=== PATIENT | female | born 1950 | race Caucasian/White ===

== ENCOUNTER → 2017-12-03 | Outpatient (CLI) | payer OTHER, BC ==
--- NOTE | 2017-12-03 16:15 | CPEEG ---
[f rep st] ELECTROENCEPHALOGRAM DATE OF STUDY: 12/03/2017 INTERPRETATION: Normal EEG during wakefulness and sleep. There were no potentially epileptogenic ab normalities present during the recording. REPORT: This EEG contains 9 Hz alpha activity in the posterior head regions. There was prominent be ta frequency activity in the background. This may be physiologic or sometimes related to medication effect. There was no abnormal activation at rest, during photic stimulation or hyperventilation. Th e patient became drowsy and fell asleep during the study. There was no abnormal activation with drow siness, sleep, or during times of arousal. /[id number]/MODL
== END ==
LOC: FCPNEURO 13:52
PROVIDERS: ATTEND Psychiatry & Neurology Neurology
DX: R20.2 Paresthesia of skin (principal)

== ENCOUNTER 2017-12-05 18:43 | Observation (INO) | payer OTHER, BC ==
--- NOTE | 2017-12-05 19:04 | EDPHY ---
HPI/HX/ROS/PE/MDM Narrative: CHIEF COMPLAINT: Aphasia, gait disturbance HISTORY OF PRESENT ILLNESS: This patient is a 67 y/o female arriving with her brother complaining of aphasia and gait disturbance onset this afternoon. This afternoon around 14:00, she went on a three mile hike, which is normal for her. She felt well at that time and her brother at bedside states she had no neurologic deficits at that time. After returning, she took a shower and when she came downstairs at 17:30, she was unable to speak to her brother including answering any questions. On arrival in the emergency department, she complaints of left-sided head pain and per nurse's report was listing to towards the right while walking to her room. The patient denies any falls while hiking or other recent head trauma. She denies numbness, paresthesias, or weakness. Throughout my interview, the patient has difficulty answering questions properly and following commands. No definitive history of fevers or chills. Patient denies shortness of breath or chest pain. Brother has little information regarding her past medical history. HPI obtained partially from patient's brother at bedside. He notes the patient did have an imaging study of her brain done yesterday at [facility] for an unknown reason. REVIEW OF SYSTEMS: Unable to obtain due to patient's expressive aphasia. PAST MEDICAL HISTORY: Unable to obtain. SOCIAL HISTORY: Brother at bedside. Lives in [place]. . VITAL SIGNS: Reviewed by me GENERAL: Well-developed, well-nourished, resting comfortably in no respiratory distress. HEENT: Atraumatic. Eyes: No icterus, no injection. EOMI. Mouth: moist mucous membranes. No erythema or lesions. Neck: supple with no adenopathy. LUNGS: Clear to auscultation bilaterally, no wheezes, rhonchi or rales. CARDIAC: Regular rate and rhythm, no rubs, murmurs or gallops. ABDOMEN: Soft, nontender, nondistended, bowel sounds normal. BACK: No CVA tenderness. EXTREMITIES: No trauma. No edema. Range of motion is normal throughout. NEURO: Expressive and receptive aphasia. Difficulty following simple commands. Difficult to assess motor strength secondary to patient's inability to fully cooperate with the exam. Patient has unusual episodes of teeth clacking which brother says occurs when she is anxious or stressed. SKIN: Warm and dry, no rash. PSYCHIATRIC: Seems slightly anxious. Unable to fully assess. Portions of this note were transcribed by a clinical specialist medical device. I personally performed a history, physical exam, medical decision making, and confirmed accuracy of information the transcribed note. ED Course: 18:45 Met patient on arrival. 67 y/o female presents with expressive and receptive aphasia. Ordered stat head CT. Plan to consult with [facility]. 19:[address] Thomas, radiologist. CT head negative for acute processes. Plan for CTA head and neck for further evaluation. 19:15 Dr. Davidson, neurologist consulted patient by telemedicine. Contact: 19:20 Reassessed. The patient believes difficulty with her words started around 17:30 and her brother now remembers that he saw her normal around 17:00 when she was returning to the house after her hike. During her interview with Dr. Davidson, the patient's presentation was markedly improved compared to her arrival here in the emergency department with more fluid speech, as well as ability to follow simple commands. Dr. Avendano does not recommend tPA, due to some concerns regarding the last known normal time as well as patient's improvement. 20:19 CTA head and neck negative for acute processes. Reassessed. Patient continues to improve. 21:07 Consulted with hospitalist service. Dr. Lovelace accepts admission for stroke-like symptoms, confusion, word-finding difficulty. MDM: Differential diagnoses the patient's presenting complaints was considered including but not limited to intracranial injury, TIA, ischemic cerebrovascular accident, hemorrhagic cerebrovascular accident, hypoglycemia, complex migraine , metastases, tumor, seizure, or electrolyte abnormality - Data Points Imaging Results: Imaging Impressions Head CT 12/05/17 18:47 Impression: Normal noncontrast CT of the brain. Results called to Dr. Sherrie Bruce at 7:00 PM at the time of the interpretation. Chest X-Ray 12/05/17 18:55 Impression: Negative portable chest. Head CTA 12/05/17 19:34 Impression: Negative CT angiography of the [place] of [place]. Results called to Dr. Bruce at 8:20 PM.. Neck CTA 12/05/17 19:34 Impression: Negative CT angiography of the carotid and vertebrobasilar system. Results called to Dr. Bruce at 8:20 PM. Note: All stenoses are calculated using NASCET Criteria. Imaging: Discussed imaging studies w/ mail caller Radiologist Laboratory Results: Laboratory Results 12/05/17 18:54 12/05/17 18:54 12/05/17 12/05/17 12/05/17 18:59 18:54 18:54 WBC RBC Hgb POC Hgb 14.6 gm/dL gm/dL (12.6-16.3) Hct POC Hct 43 % % (38-47) MCV MCH MCHC RDW Plt Count MPV Neut % (Auto) Lymph % (Auto) [place] % (Auto) Eos % (Auto) Baso % (Auto) Nucleat RBC Rel Count Absolute Neuts (auto) Absolute Lymphs (auto) Absolute Monos (auto) Absolute Eos (auto) Absolute Basos (auto) Absolute Nucleated RBC Immature Gran % Immature Gran # PT 12.4 SEC SEC (12.0-15.0) INR 0.90 (0.83-1.16) POC Sodium 142 mEq/L mEq/L (135-145) Sodium 142 mEq/L mEq/L (135-145) POC Potassium 3.5 mEq/L mEq/L (3.3-5.0) Potassium 3.8 mEq/L mEq/L (3.5-5.2) POC Chloride 103 mEq/L mEq/L (97-110) Chloride 102 mEq/L mEq/L (97-110) Carbon Dioxide 29 mEq/l mEq/l (22-31) Anion Gap 11 mEq/L mEq/L (8-16) POC BUN 24 mg/dL H mg/dL (7-23) BUN 22 mg/dL mg/dL (7-23) Creatinine 0.9 mg/dL mg/dL (0.6-1.0) POC Creatinine 0.8 mg/dL mg/dL (0.6-1.0) Estimated GFR > 60 Glucose 106 mg/dL H mg/dL (70-100) POC Glucose 114 mg/dL H mg/dL (70-100) Calcium 9.5 mg/dL mg/dL (8.5-10.4) 12/05/17 18:54 WBC 6.92 10^3/uL 10^3/uL (3.80-9.50) RBC 4.59 10^6/uL 10^6/uL (4.18-5.33) Hgb 14.3 g/dL g/dL (12.6-16.3) POC Hgb Hct 42.3 % % (38.0-47.0) POC Hct MCV 92.2 fL fL (81.5-99.8) MCH 31.2 pg pg (27.9-34.1) MCHC 33.8 g/dL g/dL (32.4-36.7) RDW 11.9 % % (11.5-15.2) Plt Count 257 10^3/uL 10^3/uL (150-400) MPV 9.6 fL fL (8.7-11.7) Neut % (Auto) 58.5 % % (39.3-74.2) Lymph % (Auto) 30.9 % % (15.0-45.0) [place] % (Auto) 9.4 % % (4.5-13.0) Eos % (Auto) 0.6 % % (0.6-7.6) Baso % (Auto) 0.3 % % (0.3-1.7) Nucleat RBC Rel Count 0.0 % % (0.0-0.2) Absolute Neuts (auto) 4.05 10^3/uL 10^3/uL (1.70-6.50) Absolute Lymphs (auto) 2.14 10^3/uL 10^3/uL (1.00-3.00) Absolute Monos (auto) 0.65 10^3/uL 10^3/uL (0.30-0.80) Absolute Eos (auto) 0.04 10^3/uL 10^3/uL (0.03-0.40) Absolute Basos (auto) 0.02 10^3/uL 10^3/uL (0.02-0.10) Absolute Nucleated RBC 0.00 10^3/uL 10^3/uL (0-0.01) Immature Gran % 0.3 % % (0.0-1.1) Immature Gran # 0.02 10^3/uL 10^3/uL (0.00-0.10) PT INR POC Sodium Sodium POC Potassium Potassium POC Chloride Chloride Carbon Dioxide Anion Gap POC BUN BUN Creatinine POC Creatinine Estimated GFR Glucose POC Glucose Calcium Point of Care Test Results: 12/05/17 18:59 POC Sodium 142 POC Potassium 3.5 POC Chloride 103 POC BUN 24 H POC Creatinine 0.8 POC Glucose 114 H General Time Seen by Provider: 12/05/17 18:54 Initial Vital Signs: Initial Vital Signs Temperature (C) 36.6 C 12/05/17 18:50 Heart Rate 91 12/05/17 18:50 Respiratory Rate 18 12/05/17 18:50 Blood Pressure 185/91 H 12/05/17 18:50 O2 Sat (%) 97 12/05/17 18:50 O2 Delivery Mode Room Air Allergies/Adverse Reactions: No Known Allergies Allergy (Unverified 12/05/17 20:15) Home Medications: Medication Instructions Recorded NK [No Known Home Meds] 12/05/17 Departure - Departure Disposition: [facility] Inpatient Acute Clinical Impression: Word finding difficulty, Stroke-like symptoms, Confusion Condition: Fair Report Scribed for: Sherrie Bruce Report Scribed by: Jennie Newell Date of Report: 12/05/17 Time of Report: 21:09
[2017-12-05 19:05] LABS: PLATELET COUNT 257 10^3/uL (150-400)
--- NOTE | 2017-12-05 19:08 | CPEKG ---
Heart Rate: 87 RR Interval: 690 P-R Interval: 164 QRSD Interval: 94 QT Interval: 376 QTC Interval: 453 P [place]: 73 QRS [place]: 25 T Wave [place]: 56 EKG Severity - NORMAL ECG - EKG Impression: SINUS RHYTHM Electronically Signed By: Sherrie Bruce 05-Dec-2017 22:31:56
[2017-12-05 19:15] LABS: INR 0.9 (0.83-1.16); PROTIME(PATIENT) 12.4 SEC (12.0-15.0)
--- NOTE | 2017-12-05 19:20 | PDCONSULT ---
Weaving Machine Operator Note: [facility] Note Demographics Consult Type: Acute Stroke First Name: Alexia Last Name: Yojana Date of : 1950 Age: 67 Gender: Female Time of initial page (): 12/05/2017 19:12 Time of return call (): 12/05/2017 19:12 Time Ready to Initiate Telemed Consult ( Time): 12/05/2017 19:12 HPI Additional History (Free Text): 67yo woman who presents with word finding issues and confusion. She was last normal at 230PM by brother. There is no focal weakness. She is not following commands well. Associated Symptoms: headache Exam Vitals: vital signs reviewed NIHSS Time (): 12/05/2017 19:16 LOC 1a: 0 = Alert; keenly responsive LOC 1b: 0 = Answers both questions correctly LOC Commands: 0 = Performs both tasks correctly Best Gaze: 0 = Normal Visual: 0 = No visual loss Facial Palsy: 1 = Minor paralysis (flattened nasolabial fold, asymmetry on smiling) Motor Arm L: 0 = No drift; limb holds 90 (or 45) degrees for full 10 seconds Motor Arm R: 0 = No drift; limb holds 90 (or 45) degrees for full 10 seconds Motor Leg L: 0 = No drift; leg holds 30-degree position for full 5 seconds Motor Leg R: 0 = No drift; leg holds 30-degree position for full 5 seconds Limb Ataxia: 0 = Absent Sensory: 0 = Normal; no sensory loss Best Language: 1 = Dccw-so-vaknchdt aphasia; some obvious loss of fluency or facility of comprehension Dysarthria: 0 = Normal Extinction + Inattention: 0 = No abnormality NIHSS: [address]: no bleed Assessment Assessment: Acute Ischemic Stroke, resolving symptoms Plan Lytic/Intervention: NOT IV or IA candidate tPA Exclusion: > 4.5 hr Target Blood Pressure: SBP < 220 Labs: Comprehensive metabolic panel, ESR, HgbA1c, Lipid Panel, UDS Imaging: CTA Head and Neck STAT, Please call me back with results GIN if there are signs of occlusion or dissection, MRI brain without Diagnostic test: echocardiogram with bubble Therapy/Eval: NPO until cleared by swallow evaluation, PT/OT, Speech/Swallow therapy consult Medication: aspirin 81mg per day VTE Prophylaxis: SCD Other: LDL goal less than 70, permissive HTN, telemetry monitoring, I have discussed my recommendations with the referring provider Disposition: admit [facility] Telemedicine: Interactive 2 way audio and visual telecommunication technology was utilized during this visit. Provider Location: [place]
[2017-12-05] MEDS ORDERED: IOPAMIDOL (ISOVUE 370) 100 ML BTL IV ONE (19:35)
[2017-12-05] MEDS ORDERED: ACETAMINOPHEN 325 MG TAB PO PRN (22:24)
[2017-12-05] MEDS ORDERED: ONDANSETRON 4 MG/2 ML VIAL IVP PRN (22:24)
[2017-12-05] MEDS ORDERED: ONDANSETRON DISINTEGRATING 4 MG TAB PO PRN (22:24)
[2017-12-06] MEDS ORDERED: SODIUM CL NASAL 45 ML BTL EACHNARE PRN (00:10)
--- NOTE | 2017-12-06 04:56 | PDGENHP ---
History and Physical - Chief Complaint Word finding difficulty - History of Present Illness 67 yo F w/ hx of anxiety presents with word finding difficulty. Patient went on a hike today. After returning she had a spell where she noted word finding difficulty and R hand numbness. This occurred sometime around 17:15. She presented to the ED for evaluation. She displayed significant improvement by the time of her presentation and was not deemed to be a tPA candidate by [facility]. She is being admitted for suspected TIA work-up. History Information - Allergies/Home Medication List Allergies/Adverse Reactions: No Known Allergies Allergy (Unverified 12/05/17 20:15) Home Medications: ALPRAZolam [Xanax 0.25 MG (*)] 0.125 - 0.25 mg PO DAILY PRN 12/05/17 [Last Taken 12/05/17] Ascorbic Acid [Vitamin C 500 mg (*)] 1,000 mg PO DAILY 12/05/17 [Last Taken ] Cholecalciferol Vit D3 [Vitamin D3 (*)] 2,000 units PO DAILY 12/05/17 [Last Taken 12/05/17] Clobetasol 0.05% [Temovate Cream] 1 deborah TP DAILY PRN 12/05/17 [Last Taken Unknown] Diclofenac Sodium 1 deborah TP DAILY PRN 12/05/17 [Last Taken 12/04/17] Fluticasone Nasal [Flonase Nasal [place] (RX)] 1 sprays EACHNARE Q2D 12/05/17 [ Last Taken 12/04/17] Loratadine 10 mg PO DAILY 12/05/17 [Last Taken 12/05/17] Magnesium Oxide 250 mg PO DAILY 12/05/17 [Last Taken 12/05/17] Multivitamins [Multivitamin (*)] 1 each PO DAILY 12/05/17 [Last Taken 12/05/17] Mupirocin 2% 1 deborah PO TID PRN 12/05/17 [Last Taken 1 Week Ago ~11/28/17] Propranolol HCl [Inderal 10mg (*)] 5 - 10 mg PO DAILY PRN 12/05/17 [Last Taken 12/05/17] Sodium Chloride [[place]] 1 spray EACHNARE Q2D 12/05/17 [Last Taken 12/03/17] busPIRone [Buspar (*)] 10 - 20 mg PO QID PRN 12/05/17 [Last Taken 12/05/17 12:00 ] I have personally reviewed and updated: family history, medical history - Past Medical History Additional medical history: Anxiety - Surgical History Reports: hysterectomy Additional surgical history: x2 - Family History Positive for: stroke - Social History Smoking Status: Never smoked Review of Systems Review of Systems: ROS: 10pt was reviewed & negative except for what was stated in HPI & below Physical Exam Physical Exam: Temp Pulse Resp BP Pulse Ox 36.6 C 93 18 163/80 H 90 L 12/06/17 00:26 12/06/17 00:26 12/06/17 00:26 12/06/17 00:26 12/06/17 00:26 Constitutional: no apparent distress, not in pain Eyes: PERRL, EOMI Ears, Nose, Mouth, Throat: moist mucous membranes, no oral mucosal ulcers Cardiovascular: regular rate and rhythym, no murmur, rub, or gallop Respiratory: no respiratory distress, no rales or rhonchi Gastrointestinal: normoactive bowel sounds, soft, non-tender abdomen Skin: warm, normal color Neurologic: AAOx3, CN II-XII Intact, other (NIHSS 0) Psychiatric: interacting appropriately, not anxious Lab Data & Imaging Review 12/05/17 18:54 12/05/17 18:54 WBC 6.92 10^3/uL (3.80-9.50) 12/05/17 18:54 RBC 4.59 10^6/uL (4.18-5.33) 12/05/17 18:54 Hgb 14.3 g/dL (12.6-16.3) 12/05/17 18:54 POC Hgb 14.6 gm/dL (12.6-16.3) 12/05/17 18:59 Hct 42.3 % (38.0-47.0) 12/05/17 18:54 POC Hct 43 % (38-47) 12/05/17 18:59 MCV 92.2 fL (81.5-99.8) 12/05/17 18:54 MCH 31.2 pg (27.9-34.1) 12/05/17 18:54 MCHC 33.8 g/dL (32.4-36.7) 12/05/17 18:54 RDW 11.9 % (11.5-15.2) 12/05/17 18:54 Plt Count 257 10^3/uL (150-400) 12/05/17 18:54 MPV 9.6 fL (8.7-11.7) 12/05/17 18:54 Neut % (Auto) 58.5 % (39.3-74.2) 12/05/17 18:54 Lymph % (Auto) 30.9 % (15.0-45.0) 12/05/17 18:54 [place] % (Auto) 9.4 % (4.5-13.0) 12/05/17 18:54 Eos % (Auto) 0.6 % (0.6-7.6) 12/05/17 18:54 Baso % (Auto) 0.3 % (0.3-1.7) 12/05/17 18:54 Nucleat RBC Rel Count 0.0 % (0.0-0.2) 12/05/17 18:54 Absolute Neuts (auto) 4.05 10^3/uL (1.70-6.50) 12/05/17 18:54 Absolute Lymphs (auto) 2.14 10^3/uL (1.00-3.00) 12/05/17 18:54 Absolute Monos (auto) 0.65 10^3/uL (0.30-0.80) 12/05/17 18:54 Absolute Eos (auto) 0.04 10^3/uL (0.03-0.40) 12/05/17 18:54 Absolute Basos (auto) 0.02 10^3/uL (0.02-0.10) 12/05/17 18:54 Absolute Nucleated RBC 0.00 10^3/uL (0-0.01) 12/05/17 18:54 Immature Gran % 0.3 % (0.0-1.1) 12/05/17 18:54 Immature Gran # 0.02 10^3/uL (0.00-0.10) 12/05/17 18:54 PT 12.4 SEC (12.0-15.0) 12/05/17 18:54 INR 0.90 (0.83-1.16) 12/05/17 18:54 POC Sodium 142 mEq/L (135-145) 12/05/17 18:59 Sodium 142 mEq/L (135-145) 12/05/17 18:54 POC Potassium 3.5 mEq/L (3.3-5.0) 12/05/17 18:59 Potassium 3.8 mEq/L (3.5-5.2) 12/05/17 18:54 POC Chloride 103 mEq/L (97-110) 12/05/17 18:59 Chloride 102 mEq/L (97-110) 12/05/17 18:54 Carbon Dioxide 29 mEq/l (22-31) 12/05/17 18:54 Anion Gap 11 mEq/L (8-16) 12/05/17 18:54 POC BUN 24 mg/dL (7-23) H 12/05/17 18:59 BUN 22 mg/dL (7-23) 12/05/17 18:54 Creatinine 0.9 mg/dL (0.6-1.0) 12/05/17 18:54 POC Creatinine 0.8 mg/dL (0.6-1.0) 12/05/17 18:59 Estimated GFR > 60 12/05/17 18:54 Glucose 106 mg/dL (70-100) H 12/05/17 18:54 POC Glucose 114 mg/dL (70-100) H 12/05/17 18:59 Calcium 9.5 mg/dL (8.5-10.4) 12/05/17 18:54 Imaging Review: Imaging Impressions Head CT 12/05/17 18:47 Impression: Normal noncontrast CT of the brain. Results called to Dr. Sherrie Bruce at 7:00 PM at the time of the interpretation. Chest X-Ray 12/05/17 18:55 Impression: Negative portable chest. Head CTA 12/05/17 19:34 Impression: Negative CT angiography of the [place] of [place]. Results called to Dr. Bruce at 8:20 PM.. Neck CTA 12/05/17 19:34 Impression: Negative CT angiography of the carotid and vertebrobasilar system. Results called to Dr. Bruce at 8:20 PM. Note: All stenoses are calculated using NASCET Criteria. Assessment & Plan Assessment: 67 yo F w/ hx of anxiety presents w/ possible TIA. Plan: 1. TIA - Presented with word-finding difficulty and R hand numbness, which improved by time of arrival. She was not deemed to be a tPA candidate by [facility]. She denies symptoms at the time of my evaluation with a NIHSS of 0. - Admit for observation - Neuro checks q4h, PT/OT/PANTOGRAPH ENGRAVER evals - S/p CTA Head/Neck with no acute lesions - MRI brain w/o, TTE w/ bubble ordered - Monitor on telemetry - Check lipid panel, A1c - Neurology consult placed Diet - Regular pending swallow eval Code - Full Ppx - SCDs Dispo - Admit under observation status
[2017-12-06 05:56] LABS: PLATELET COUNT 242 10^3/uL (150-400)
--- NOTE | 2017-12-06 09:35 | NEUROPROG ---
Assessment: [id number] - Neurology Consult: - CC: Dr. Pete consulted neurology for word finding difficulties. Results placed in EMR for their review. - HPI: Pt presented to [facility] ER on 12/05/17 with word finding difficulty and right hand numbness. Her symptoms improved in the ER so she was not a TPA candidate. Head CT and CTA head/neck was unremarkable. She was admitted for a stroke evaluation. I initially saw her on 12/06/17. She reported her symptoms have now resolved. She has been working outpatient with Dr. Khushbu Rider for tinnitus. - PMHx: anxiety, hysterectomy, C-sect - Home Meds: Xanax, diclofenac, loratadine, propranolol, buspar - SHx: no tobacco FHx: stroke - ROS: Pt denied acute fever, total vision loss, active severe chest pain, respiratory failure, total body severe rash, total bowel/bladder incontinence, psychosis, active seizures, or active bleeding - O: VS reviewed General: Alert Eyes: Fundoscopic exam not able to visualize optic disks CV: Heart RRR, no murmur, no carotid bruit Lungs: Clear to auscultation bilaterally, no rhonchi or rales Neuro: - Mental: . Oriented x person/place/date . concentration appears normal . speech fluency/comprehension normal . memory appears normal . fund of knowledge appear intact - Cranial Nerves: . II: PERRL, VFFTC . III/IV/: EOMI, no nystagmus, normal smooth pursuits, no Ptosis . V: facial sensation intact to LT . VII: face symmetric to eye closure and smile . VIII: hearing intact to conversation . IX/X: uvula raises symmetrically . XI: SCM 5/5 B/L strength . XII: tongue protrudes midline w/nl strength - Motor: . Tone: normal tone in all 4 extremity . Strength: no pronator drift, strength 5/5 throughout (B/L delt, bic, tri, hand director foundation, hf/he, df/pf) - Reflexes: B/L bic/BR/patella 2/4 - Sensory: all 4 extremity intact to light touch - Coord: [id number] wnl, FRANCESCA wnl, [id number] wnl - Gait: Deferred - NIH SS 0 - Labs: 12/05/17- CBC unremarkable 12/06/17- CMP Anion gap 6L, LDL 77L - Rads: 12/05/17- Head CT: normal (I personally visualized the images on 12/06/17) 12/05/17- Head/Neck CTA: unremarkable - Assessment: 1. TIA causing Transient word finding difficulties and right hand numbness on : Normal neurologic exam. Symptoms most consistent with TIA. CTA head/ neck unremarkable on 12/05/17 and LDL 77. - Plan: - Begin Aspirin 325 mg qd, change to Aspirin 81 mg qd on discharge for stroke prevention - Brain MRI w/o con - TTE, 24 hour telemetry - Blood pressure goal < 140/90 - H1AC < 7.0 (H1AC pending) - LDL < 70 (77), recommend beginning low dose statin - Speech consult to determine any rehab needs - F/U in 1-4 weeks with her local neurologist, Dr. Khushbu Rider, who she has established care with Objective: Vital Signs Temp Pulse Resp BP Pulse Ox 36.9 C 80 14 125/78 H 95 12/06/17 08:00 12/06/17 08:00 12/06/17 08:00 12/06/17 08:00 12/06/17 08:00 Laboratory Results 12/06/17 05:22 12/06/17 05:22 12/05/17 12/06/17 12/07/17 05:59 05:59 05:59 Intake Total 150 Output Total 500 Balance -350 PT 12.4 SEC (12.0-15.0) 12/05/17 18:54 INR 0.90 (0.83-1.16) 12/05/17 18:54 Allergies/Adverse Reactions: No Known Allergies Allergy (Unverified 12/05/17 20:15)
--- NOTE | 2017-12-06 09:40 | NEUROPROG ---
Assessment: [id number] - Neurology Consult: - CC: F/U for stroke - Narrative Summary: Pt reported she awoke on 12/03/17 and noted left side numbness of her arm/leg. A brain MRI showed bilateral small strokes suggesting embolic source. Head/ neck CTA showed moderate atherosclerotic disease in the B/L common carotid arteries w/o complete occlusion or intraluminal thrombi. Pt outside window for TPA so admitted for stroke evaluation. Outpatient meds prior to stroke had included aspirin 325 mg qd, Plavix 75 mg qd, and Lipitor 10 mg qd. Pt was using tobacco. LDL 72 and H1AC 7.3 on 12/04/17. I initially saw the patient on 12/04/17. She complained of some left arm numbness but otherwise felt back to her normal baseline. - F/U 12/05/17. I spoke with Tele-neurology doctor on-call on 12/04/17 and discussed case. He felt it was reasonable, given suspected cardio-embolic stroke source, of beginning Eliquis for oral anticoagulation, stopping Plavix, and decreasing aspirin to 81 mg qd. She should also have a long-term implanted cardiac rhythm monitor placed at discharge or soon afterwards. Pt denied new complaints. Telemetry and TTE were unremarkable for cardioembolic source. - HPI: F/U 12/06/17. Implanted fitness and wellness manager placed yesterday. No new events. Pt able to use bathroom without problems. Pt denied any problems. - PMHx: DM2, COPD, HLD, glaucoma, CAD post stenting, lung cancer - SHx: +tobacco FHx: Alz, brain tumor - ROS: Pt denied acute fever, total vision loss, active severe chest pain, respiratory failure, total body severe rash, total bowel/bladder incontinence, psychosis, active seizures, or active bleeding - Labs: 12/03/17- CMP Ca 8.4L, H1AC 7.3H 12/04/17- LDL 72L - Rads: 12/03/17- CTA head/neck: mod b/l carotid disease, 40% b/l prox ICA stenosis, vertebral atherosclerosis, R upper lobe lung ca, intracranial stenosis of vessels 12/03/17- Brain MRI w/o con: multiple acute lacunar infarcts involving R frontal , R occipital, and B/L cerebellar areas, likely embolic, mod atrophy and severe CMVD 12/04/17- TTE: no thrombus reported 12/04/17- 24 hour telemetry: no afib reported - Assessment: 1. Multiple acute lacunar infarcts involving R frontal, R occipital, and B/L cerebellar areas on 12/03/17 causing left sided numbness: Neurologic exam on 12/04 showed left arm sensory changes. Stroke risk factors are tobacco use, diabetes, HLD, CAD, significant vascular atherosclerosis, and lung cancer. Given stroke pattern on MRI it appears to be a proximal embolic source, likely cardiac. Given the stroke occurred on ASA/Plavix and statin in addition to her severe underlying atherosclerotic disease in her intracranial vessels places her at high risk for recurrent stroke. TTE/24 hour telemetry unremarkable for stroke cause. - 2. Significant vascular athersclerotic disease: CTA head/neck on 12/03/17 showed mod b/l carotid disease, 40% b/l prox ICA stenosis, vertebral atherosclerosis, R upper lobe lung ca, intracranial stenosis of vessels placing her at high risk for stroke. Pt will need aggressive reduction of risk factors of which smoking tobacco is the primary factor. - 3. Lung Cancer 4. DM2 5. CAD - Plan: - Pt needs implanted prolonged fitness and wellness manager to look for paroxysmal afib - Stop Plavix - Begin Eliquis for oral anticoagulation given suspected cardioembolic stroke source - Change ASA 325 mg qd to 81 mg qd (less bleeding risk given use of concurrent anti-coagulation, pt needs antiplatelet therapy given significant atherosclerotic vessel disease on CTA head/neck, pt counseled on increased bleeding risk on 12/04/17 and she accepted risk) - Tobacco cessation is critical - Blood pressure goal < 140/90 - H1AC < 7.0 (7.3) - LDL < 70 (7.2), recommend increasing Lipitor 10 mg qd to 20 mg qd to address - PT/OT/Speech to determine rehab needs - F/U in neurology clinic in 1-4 weeks after discharge - No further inpatient neurologic w/u needed, neurology will sign off Objective: Vital Signs Temp Pulse Resp BP Pulse Ox 36.9 C 80 14 125/78 H 95 12/06/17 08:00 12/06/17 08:00 12/06/17 08:00 12/06/17 08:00 12/06/17 08:00 Laboratory Results 12/06/17 05:22 12/06/17 05:22 12/05/17 12/06/17 12/07/17 05:59 05:59 05:59 Intake Total 150 Output Total 500 Balance -350 PT 12.4 SEC (12.0-15.0) 12/05/17 18:54 INR 0.90 (0.83-1.16) 12/05/17 18:54 Allergies/Adverse Reactions: No Known Allergies Allergy (Unverified 12/05/17 20:15)
--- NOTE | 2017-12-06 10:15 | ECHO ---
[email or web address] [address] [address] Main: [phone] Fax: Transthoracic Echocardiogram Name: LISA CONDON MR#: [id number] Study Date: 12/06/2017 Study Time: 09:30 AM Date of : 1950 Age: 67 year(s) Height: 157.5 cm (62 in.) Weight: 56.7 kg (125 lb.) BSA: 1.57 m2 Gender: Female Examination: Echo with Agitated Saline Indication: TIA, Aphasia, Bubble exam to R/O Embolic source Image Quality: Contrast: Requested by: Jj Clemente BP: 124 mmHg/70 mmHg Heart Rate: Rhythm: Indication: TIA, Aphasia, Bubble exam to R/O Embolic source Procedure Staff Manager Front: Hugo Ennis RDCS Reading Physician: Jun Singh MD Requesting Provider: Conclusions: Normal size left ventricle. No LV hypertrophy. Normal global systolic LV function. EF is 61 %. No regional wall motion abnormality. Diastolic LV function normal for age. An agitated saline study was performed and was negative for intracardiac shunting. There is no mitral valve regurgitation. The aortic valve is tri-leaflet and functions normally. Mild tricuspid regurgitation is present. There is no obvious source of cardiac emboli. Negative bubble exam.. Measurements: Chambers Valvular Assessment AV/MV Valvular Assessment TV/PV Normal Normal Normal Name Value Range Name Value Range Name Value Range Ao Neris (MM): 2.5 cm (2.2 cm-3.7 MV E Vmax: 0.70 m/s ( - ) TR Vmax: 2.81 mm/s ( - ) cm) MV A Vmax: 0.85 m/s ( - ) TR PGmax: 32 mmHg ( - ) IVSd (2D): 0.7 cm (0.6 cm-1.1 MV E/A: 0.82 ( - ) syst. PAP: 37 mmHg ( - ) cm) PV Vmax: 0.98 m/s (0.6 m/s-0.9 LVDd (2D): 4.3 cm (3.9 cm-5.3 m/s) cm) PV PGmax: 4 mmHg ( - ) LVDs (2D): 2.9 cm (2.1 cm-4 cm) LVPWd (2D): 0.8 cm ( - ) LVEF (2D): 61 (>=54 %) Continued Measurements: Chambers Valvular Assessment AV/MV Valvular Assessment TV/PV Patient: LISA CONDON Study Date: 12/06/2017 Page 1 of 2 09:30 AM Name Value Name Value Name Value LADs Lon.9 cm MV E' Septal: 0.06 m/s CVP (est.): 5 mmHg LA Area: 13.6 cm2 MV E/E' Septal: 12.60 LA Volume: 30 ml MV E/E' Lateral: 9.60 LA Volume Index: 19.1 ml/m2 Findings: Left Ventricle: Normal size left ventricle. No LV hypertrophy. Normal global systolic LV function. EF is 61 %. No regional wall motion abnormality. Diastolic LV function normal for age. Right Ventricle: Normal size right ventricle. Left Atrium: The left atrium is normal in size. An agitated saline study was performed and was negative for intracardiac shunting. Right Atrium: The right atrium is normal in size. Mitral Valve: The mitral valve is normal in appearance and function. There is no mitral valve regurgitation. Aortic Valve: The aortic valve is tri-leaflet and functions normally. There is no aortic valve regurgitation. Tricuspid Valve: The tricuspid valve is normal in appearance and function. Mild tricuspid regurgitation is present. Pulmonic Valve: The pulmonic valve is normal in appearance and function. Aorta: The aorta is normal. Pericardium: No pericardial effusion. Exam Comments: There is no obvious source of cardiac emboli. Negative bubble exam.. (No Signature Object) Patient: LISA CONDON Study Date: 12/06/2017 Page 2 of 2 09:30 AM [id number]
--- NOTE | 2017-12-06 10:35 | ASMTCMCOM ---
CM Note CM Note Notes: 67 year old female admitted via Ed for stroke symptoms. She lives in [place]. Symptoms largely resolved. Speech therapy pending. Neurology has signed off. Final needs to be determined at this time. CM available should needs arise. Date Signed: 12/06/2017 10:35 AM Electronically Signed By:Carlota Pelaez RN
[2017-12-06] MEDS ORDERED: ATORVASTATIN CALCIUM 20 MG TAB PO SCH (12:30)
[2017-12-06] MEDS ORDERED: ASPIRIN EC 325 MG TAB PO SCH (12:30)
[2017-12-06] MEDS ORDERED: ALPRAZolam 0.25 MG TAB PO PRN (14:13)
[2017-12-06] MEDS ORDERED: busPIRone 10 MG TAB PO PRN (14:13)
[2017-12-06] MEDS ORDERED: CETIRIZINE 10 MG TAB PO SCH (14:15)
[2017-12-06] MEDS ORDERED: FLUTICASONE NASAL 120 SPRAYS/16 GM MDI EACHNARE SCH (14:15)
[2017-12-06] MEDS ORDERED: ALPRAZolam 0.5 MG TAB PO PRN (14:42)
[2017-12-06 16:00] VITALS: BP 135/75
[2017-12-07] MEDS ORDERED: SODIUM CL NASAL 45 ML BTL EACHNARE SCH (09:00)
[2017-12-07] MEDS ORDERED: CHOLECALCIFEROL VIT D3 1,000 UNITS TAB PO SCH (09:00)
== END 2017-12-06 18:04 | disposition home or self-care (01) ==
LOC: F3N 21:39
PROVIDERS: ADMIT Family Medicine; ATTEND Family Medicine
DX: G45.9 Transient cerebral ischemic attack, unspecified (principal); R29.702 NIHSS score 2; F41.9 Anxiety disorder, unspecified; Z82.3 Family history of stroke
CPT/HCPCS: 70450; 70496; 70498; 70551; 71045; 92523; 93005; 93306; 99285; G0378; G9165; G9166; G9167; Q9967; 82947-QW